=== PATIENT | male | born 1980 | race Caucasian/White ===

== ENCOUNTER 2018-02-13 08:31 | Outpatient (CLI) | payer OTHER ==
--- NOTE | 2018-02-13 12:05 | MRI Report ---
Reason: BILATERAL HIP PAIN Procedure Date: 02/13/2018 Accession Number: [id number] / [id number] Procedure: MRI - Hip LT W/O CPT Code: FULL RESULT: EXAM: LEFT HIP MRI WITHOUT CONTRAST EXAM DATE: 02/13/2018 10:41 AM. CLINICAL HISTORY: Hip clicking. COMPARISON: None. TECHNIQUE: Multiplanar, multisequence T1-weighted and fluid-sensitive, small hoqig-no-arwb sequences of the hip and large gface-qb-ztzi sequences of the pelvis without contrast. Other: None. FINDINGS: Bones: No fractures or subluxations. No marrow edema or bone lesions. Right/left Hip: No acetabular retroversion. Femoral head/neck offset is within normal limits. No effusion or loose bodies. The articular cartilage is intact. The labrum is unremarkable on this nonarthrographic study. The ligamentum teres is intact. Other Joints: The visualized lumbar spine, sacroiliac joints, symphysis pubis, and contralateral hip are unremarkable. Musculature: No edema or fatty atrophy. The gluteus medius and minimus tendons are normal. The visualized hamstring tendons are normal. The ischiofemoral space is normal. Pelvic Cavity: The visualized viscera are unremarkable. No lymphadenopathy. No free fluid in the pelvis. Other: The visualized sciatic nerves are unremarkable. No bursitis. The subcutaneous tissues are unremarkable. IMPRESSION: No MRI abnormalities in the hip and visualized pelvis. [facility]CUL[facility] SECTION
--- NOTE | 2018-02-13 12:15 | MRI Report ---
Reason: BILATERAL HIP PAIN Procedure Date: 02/13/2018 Accession Number: [id number] / [id number] Procedure: MRI - Hip RT W/O CPT Code: FULL RESULT: EXAM: RIGHT HIP MRI WITHOUT CONTRAST EXAM DATE: 02/13/2018 10:05 AM. CLINICAL HISTORY: Right hip clicking. COMPARISON: None. TECHNIQUE: Multiplanar, multisequence T1-weighted and fluid-sensitive, small avzlb-dc-titg sequences of the hip and large nlhnk-rc-srhp sequences of the pelvis without contrast. Other: None. FINDINGS: Bones: Tiny subcortical cyst at the anterior aspect of the left femoral head. No acute fracture or bone lesions. No osteonecrosis. Right Hip: No acetabular retroversion. Femoral head/neck offset is within normal limits. No effusion or loose bodies. The articular cartilage is intact. The labrum is unremarkable on this nonarthrographic study. The ligamentum teres is intact. Other Joints: The visualized lumbar spine, sacroiliac joints, symphysis pubis, and contralateral hip are unremarkable. Musculature: No edema or fatty atrophy. The gluteus medius and minimus tendons are normal. The visualized hamstring tendons are normal. The ischiofemoral space is normal. Pelvic Cavity: The visualized viscera are unremarkable. No lymphadenopathy. No free fluid in the pelvis. Other: The visualized sciatic nerves are unremarkable. No bursitis. The subcutaneous tissues are unremarkable. IMPRESSION: No MRI abnormalities in the right hip and visualized pelvis. [facility]CUL[facility]KE[facility] SECTION
== END 2018-02-13 08:32 | disposition home or self-care (01) ==
LOC: DI 08:31
PROVIDERS: ATTEND Physician Assistant Medical
DX: M25.551 Pain in right hip (principal); M25.552 Pain in left hip

== ENCOUNTER 2019-01-27 19:32 | Emergency (ER) | payer OTHER ==
[2019-01-27 19:37] VITALS: BP 169/96
--- NOTE | 2019-01-27 20:01 | ED Physician Documentation ---
PD HPI LOWER EXT INJURY - Stated complaint Stated Complaint: RT ANKLE INJ - Chief complaint Chief Complaint: Ext Problem - History obtained from History obtained from: Patient - History of Present Illness PD HPI LOW EXT INJURY LOCATION: Right, Ankle Type of injury: Twist Where injury occurred: Home Timing - onset: How many hours ago (1.5) Timing - details: Abrupt onset Improved by: Nothing Worsened by: Moving Associated symptoms: Numbness, Tingling, Swelling. No: Weakness, Discolored Contributing factors: No: Prior ortho surgery Similar symptoms before: Has not had sx before Recently seen: Not recently seen - Additional information Additional information: Is a 38 he was playing catch football with his son he jumped up to catch the ball and when he landed he came down on the edge of the driveway and inverted his right ankle falling to the ground. This happened about an hour and a half prior to presentation. He is unable to bear weight on it. Denies prior injury to that ankle. He is complaining of numbness of the entire foot and shooting pains up the anterior of the lower leg. He had some crutches at home that belonged to his daughter so he is been using those. He did not take anything at home for the pain. He has gabapentin and tramadol that he uses for pain related to [id number]-Tlj[place]. Review of Systems Skin: denies: Laceration (s) Musculoskeletal: reports: Extremity pain, Joint pain, Joint swelling PD PAST MEDICAL HISTORY - Past Medical History Past Medical History: Yes Musculoskeletal: Other Other Past Medical History: degenerative nerve disorder - Past Surgical History Past Surgical History: Yes Ortho: Carpal Tunnel surgery - Present Medications Home Medications: Ambulatory Orders Medication Instructions Recorded Confirmed Gabapentin 600 mg PO BID 01/27/19 01/27/19 traMADol [Ultram] 50 mg PO BID 01/27/19 01/27/19 - Allergies Allergies/Adverse Reactions: Allergies Allergy/AdvReac Type Severity Reaction Status Date / Time No Known Drug Allergies Allergy Verified 01/27/19 19:37 - Social History Does the pt smoke?: No Smoking Status: Never smoker Does the pt drink ETOH?: Yes Does the pt have substance abuse?: No - Immunizations Immunizations are current?: Yes PD ED PE NORMAL - Vitals Vital signs reviewed: Yes - General General: Alert and oriented X 3, No acute distress, Well developed/nourished - HEENT HEENT: Atraumatic - Respiratory Respiratory: No respiratory distress - Derm Derm: Normal color, Warm and dry - Extremities Extremities: Other (There is swelling to the right lateral ankle with bruising. There is tenderness over the lateral malleolus but also the medial malleolus. There does not appear to be a joint effusion. Limited range of motion of the ankle due to pain. He has a dorsalis pedis pulse 2+ and sensation is intact light touch she is able to wiggle his toes.) - Neuro Neuro: Alert and oriented X 3, No motor deficit, No sensory deficit - Psych Psych: Normal mood, Normal affect Results - Vitals Vitals: Vital Signs - 24 hr 01/27/19 19:35 Temperature 37.3 C Heart Rate 98 Respiratory 18 Rate Blood Pressure 169/96 H O2 Saturation 99 Oxygen O2 Source Room air - Rads (name of study) r ankle Radiology: EMP read indepedently (No acute fracture.), EMP read contemporaneously Departure - Departure Disposition: 01 Home, Self Care Clinical Impression: Sprain of ankle Qualifiers: Encounter type: initial encounter Involved ligament of ankle: unspecified ligament Laterality: right Qualified Code(s): S93.401A - Sprain of unspecified ligament of right ankle, initial encounter Condition: Good Instructions: ED Sprain Ankle, ED Splint Ankle Jose, ED ALEX Follow-Up: WILLY Hayward [Provider Group] Comments: Wear the air splint for comfort for 2 weeks. Ice and elevate and nonweightbearing until you are able to put weight on the foot without pain. Take ibuprofen 3 to 4 tablets every 8 hours [id number] for pain. You can use your tramadol for additional pain. Follow-up with your primary care provider if you are not able to bear weight in for 5 days or if the pain is still there in 2 weeks. Range of motion exercises about the ankle as discussed.
[2019-01-27] MEDS ORDERED: IBUPROFEN 600 MG TABLET PO STA (20:14)
[2019-01-27] MEDS ORDERED: HYDROcod/ACET 5/325 Prepack 4 PO STA (20:17)
--- NOTE | 2019-01-27 20:19 | XRAY Report ---
Reason: rolling injury, pain, swelling Procedure Date: 01/27/2019 Accession Number: [id number] / [id number] Procedure: XR - Ankle 3 View RT CPT Code: FULL RESULT: EXAM: RIGHT ANKLE RADIOGRAPHY EXAM DATE: 01/27/2019 07:56 PM. CLINICAL HISTORY: Rolled ankle. Pain. Swelling. COMPARISON: None. TECHNIQUE: 3 views. FINDINGS: Bones: Normal. No fractures or bone lesions. Joints: Normal. No effusion. No subluxations. The ankle mortise is normally aligned. Soft Tissues: Lateral soft tissue swelling. IMPRESSION: No bony abnormality. [facility]
== END 2019-01-27 20:34 | disposition home or self-care (01) ==
LOC: ED 19:32
DX: S93.401A Sprain of unspecified ligament of right ankle, initial encounter (principal); X50.1XXA Overexertion from prolonged static or awkward postures, initial encounter; Y93.61 Activity, american tackle football; Y92.008 Other place in unspecified non-institutional (private) residence as the place of occurrence of the external cause
CPT/HCPCS: 73610; 99283; 99284; A9270